=== PATIENT | female | born 1950 | race Caucasian/White ===

== ENCOUNTER 2017-08-29 11:06 | Outpatient (CLI) | payer OTHER, MEDICARE ==
[~2017-08-29 11:06] MED LIST: AMOX-423 PO; ONDA4TAB5 PO; PRO40 PO; TRAM0.5T PO
== END 2017-08-29 19:42 | disposition home or self-care (01) ==
LOC: SCT 11:06
PROVIDERS: ATTEND Family Medicine
DX: C18.1 Malignant neoplasm of appendix (principal); C78.7 Secondary malignant neoplasm of liver and intrahepatic bile duct; I70.8 Atherosclerosis of other arteries